=== PATIENT | female | born 2000 | race Hispanic/Latino ===

== ENCOUNTER 2025-01-13 20:25 | Emergency (ER) | payer BC ==
[~2025-01-13] VITALS: Ht 170.2 cm; Wt 104.3 kg
--- NOTE | 2025-01-13 20:45 | ERN ---
ED Note History of Present Illness Stated Complaint: AMS Chief Complaint: Altered Mental Status Time Seen by MD: 20:40 Dictation: PATIENT IS A 24-YEAR-OLD FEMALE COMING IN FROM [facility] WITH COMPLAINTS OF ALTERED MENTAL STATUS PER THE REPORT GOTTEN FROM THE [facility], PATIENT HAD TO BE AROUSED WITH A STERNAL RUB THIS AFTERNOON AND THIS MORNING SHE HAS TO BE AROUSED WITH A AMMONIA PIN. THEY ALSO STATES SHE HAD A FALL AND HIT HER HEAD THIS MORNING HOWEVER NO LOC NO NAUSEA VOMITING. PATIENT IS CURRENTLY ALERT WITH HER EYES OPEN IN HIS ANSWERING QUESTIONS APPROPRIATELY STATES SHE HAS NO HEADACHE NO COMPLAINTS OF PAIN ANYWHERE. SHE IS NOTED TO HAVE A VERY FLAT AFFECT. NO SIGN OF SCALP INJURY, NO NECK PAIN Allergies: Coded Allergies: No Known Drug Allergies (Unverified Allergy, Unknown, 01/14/25) Past Medical History Past Medical History: Schizophrenia Surgical History: None History: Not Applicable RN Note Reviewed/Agreed w/PFSH: Yes Review of System Dictation CONSTITUTIONAL: NEGATIVE EXCEPT FOR HPI HEAD/FACE: NEGATIVE EXCEPT FOR HPI EENT: NEGATIVE EXCEPT FOR HPI RESPIRATORY: NEGATIVE EXCEPT FOR HPI GASTROINTESTINAL/ABDOMINAL: NEGATIVE EXCEPT FOR HPI GENITOURINARY: NEGATIVE EXCEPT FOR HPI MUSCULOSKELETAL: NEGATIVE EXCEPT FOR HPI INTEGUMENTARY: NEGATIVE EXCEPT FOR HPI NEUROLOGICAL/PSYCH: NEGATIVE EXCEPT FOR HPI ALTERED MENTAL STATUS HEMATOLOGIC/LYMPHATIC: NEGATIVE EXCEPT FOR HPI ALL SYSTEMS NEGATIVE, EXCEPT NOTED ABOVE. 13 POINT REVIEW OF SYSTEMS ASSESSED AND ALL NEGATIVE EXCEPT FOR ABOVE. Initial Vital Sign VS Vital Signs Date Time Temp Pulse Resp B/P (MAP) Pulse Ox O2 Delivery O2 Flow Rate FiO2 01/13/25 20:27 99.5 97 20 147/88 100 Room Air* 0 21 Physical Exam Dictation VITAL SIGNS REVIEWED GENERAL APPEARANCE: ALERT, ORIENTED X 3, NO ACUTE DISTRESS, WELL DEVELOPED, NOURISHED. OBESE DECONDITIONED HEAD AND FACE: NON-TRAUMATIC. EYES: PERRL, PINK CONJUNCTIVAS, EYELID NO TRAUMA, ANTERIOR CHAMBER WITH ARCUS SENILIS. EARS: PINNAS INTACT AND NO SIGNS OF TRAUMA OR ERYTHEMA EAR CANALS CLEAR AND NO DISCHARGE TM NO ERYTHEMA NOSE: NO DISCHARGE, NO BLEEDING. OROPHARYNX: MOUTH NORMAL, TONGUE PINK, PHARYNX CLEAR,NO ERYTHEMA, TONSILS NO EXUDATES, NO ABSCESSES NOTED, MUCOUS MEMBRANE MOIST NECK: SUPPLE, NON-TENDER, NO THYROMEGALY, NO MASSES, NO JVD, NO BRUITS BREAST:DEFERRED CHEST:NO TENDERNESS, NO CREPITUS, NO PARADOXICAL MOVEMENT, NO RETRACTIONS LUNGS:CLEAR, WELL-VENTILATED, SYMMETRIC, NO RALES, NO WHEEZING, NO RHONCHI, NO STRIDOR, GOOD BREATH SOUNDS BILATERALLY HEART: REGULAR RATE, REGULAR RHYTHM, NO MURMUR, NO GALLOPS VASCULAR: NO PERIPHERAL EDEMA, ABDOMEN: SOFT, POSITIVE BOWEL SOUNDS, NONDISTENDED, NO GUARDING, NONTENDER, NO REBOUND, NO MASSES NO HEPATOMEGALY, NO SPLENOMEGALY, NO FERNÁNDEZ'S SIGN, NO HERNIAS. RECTAL: DEFERRED GENITAL: DEFERRED NEUROLOGICAL: NORMAL SPEECH, MOTOR FUNCTION INTACT, SENSORY FUNCTION INTACT FLAT AFFECT AND MONO TONE, OUR ANSWERING QUESTIONS APPROPRIATELY. MUSCULOSKELETAL: NECK NONTENDER, FULL RANGE OF MOTION, BACK NONTENDER, FULL RANGE OF MOTION, EXTREMITIES: NONTENDER, FULL RANGE OF MOTION SKIN: COLOR PINK, DRY, NO TURGOR, NO RASH, NO LACERATIONS, NO ABRASIONS, NO CONTUSIONS. LYMPHATIC: DEFERRED Results (Laboratory/Radiology) Laboratory/Radiology Laboratory Tests Test 01/13/25 20:41 White Blood Count 13.6 K/uL (4.8-10.8) H Red Blood Count 5.03 MIL/uL (4.00-5.50) Hemoglobin 13.8 g/dL (12.0-16.0) Hematocrit 42.5 % (36-48) Mean Corpuscular Volume 84.5 fL (79-99) Mean Corpuscular Hemoglobin 27.4 pg (27.0-33.0) Mean Corpuscular Hemoglobin Concent 32.5 g/dL (32.0-36.0) Red Cell Distribution Width 13.3 % (11.0-15.5) Platelet Count 327 K/uL (130-400) Mean Platelet Volume 10.4 fL (7.5-10.5) Immature Granulocyte % (Auto) 0.4 % (0-1) Neutrophils (%) (Auto) 78.5 % (40.0-77.0) H Lymphocytes (%) (Auto) 14.8 % (21.0-51.0) L Monocytes (%) (Auto) 5.0 % (3.0-13.0) Eosinophils (%) (Auto) 0.7 % (0.0-8.0) Basophils (%) (Auto) 0.6 % (0.0-5.0) Neutrophils # (Auto) 10.7 K/uL (1.8-7.7) H Lymphocytes # (Auto) 2.0 K/uL (1.0-4.8) Monocytes # (Auto) 0.7 K/uL (0.1-1.0) Eosinophils # (Auto) 0.09 K/uL (0.00-0.70) Basophils # (Auto) 0.08 K/uL (0.00-0.20) Absolute Immature Granulocyte (auto 0.05 K/uL (0-1) Nucleated Red Blood Cells 0.0 % (0.0-0.19) Sodium Level 133 mmol/L (136-145) L Potassium Level 3.6 mmol/L (3.5-5.1) Chloride Level 97 mmol/L (101-111) L Carbon Dioxide Level 28 mmol/L (21-32) Blood Urea Nitrogen 11 mg/dL (7-18) Creatinine 0.9 mg/dL (0.5-1.0) Glomerular Filtration Rate Calc 92 mL/min (>90) Random Glucose 99 mg/dL (70-105) Total Calcium 8.9 mg/dL (8.5-10.1) Ammonia < 10 umol/L (11-32) L Total Creatine Kinase 462 U/L (21-232) *H Serum Test, Qualitative NEGATIVE (NEGATIVE) Salicylates Level < 2.8 mg/dL (2.8-20.0) L Acetaminophen Level < 1 mcg/mL (10-30) L Serum Alcohol < 3 mg/dL (0-10) Labs Reviewed?: Yes ED Course ED Course Orders Procedure Category Date Status Time Ct Head/Brain W/O CT 01/13/25 Resulted Contrast 20:40 Straight Cath If No CPOE 01/13/25 Transmitted Void X6hrs 20:40 Ammonia LAB 01/13/25 Complete 20:40 Drug Screen Urine LAB 01/13/25 Logged 20:40 Cbc With Differential LAB 01/13/25 Complete 20:40 Alcohol, Blood LAB 01/13/25 Complete 20:40 Salicylate LAB 01/13/25 Complete 20:40 Acetaminophen LAB 01/13/25 Complete 20:40 Testing, LAB 01/13/25 Complete Serum Hcg 20:40 Urinalysis Profile LAB 01/13/25 Logged 20:40 Creatine Kinase, Total LAB 01/13/25 Complete 20:40 Basic Metabolic Panel LAB 01/13/25 Complete 20:40 0.9%Nacl 1000ml (Ns PHA 01/13/25 Complete 1000ml) 22:00 Current Medications Medications (Trade) Dose Ordered Sig/Mikayla Route PRN Reason Start Time Stop Time Status Last Admin Dose Admin Sodium Chloride 1,000 ml @ 0 mls/hr ONCE ONCE IV 01/13/25 22:00 01/14/25 00:07 DC 01/14/25 00:33 Vital Signs Date Time Temp Pulse Resp B/P (MAP) Pulse Ox O2 Delivery O2 Flow Rate FiO2 01/13/25 20:27 99.5 88 20 147/88 99 Room Air 0 01/13/25 20:27 99.5 97 20 147/88 100 Room Air* [address] head is negative for any masses hydrocephalus or intracerebral bleeding. Moreover her labs are normal. Her tox screen is negative. She is stable to be discharged back to her facility Medical Decision Making MDM Patient has decreased mental status. At the facility she had jaw clenching and unresponsiveness suggestive of a seizure. We will do a CT scan of her head to rule out masses and intracerebral hemorrhage. In addition we will do a tox screen. DX & DISP Disposition: Discharge Departure Impression: Primary Impression: Decreased alertness Additional Impression: Seizure Condition: Stable Referrals: SELF,REFERRAL (PCP) ROMAINE WATTS NP Jan 13, 2025 20:45 BENJAMIN SCHERER MD Jan 14, 2025 01:28
[2025-01-13 20:48] LABS: BASOPHILS # (AUTO) 0.08 K/uL (0.00-0.20); BASOPHILS % (AUTO) 0.6 % (0.0-5.0); EOSINOPHILS # (AUTO) 0.09 K/uL (0.00-0.70); EOSINOPHILS % (AUTO) 0.7 % (0.0-8.0); HEMATOCRIT 42.5 % (36-48); IMMATURE GRANULOCYTE ABSOLUTE 0.05 K/uL (0-1); LYMPHOCYTES % (AUTO) 14.8 % (21.0-51.0); MEAN CORPUSCULAR HEMOGLOBIN 27.4 pg (27.0-33.0); MEAN CORPUSCULAR HGB CONC 32.5 g/dL (32.0-36.0); MEAN CORPUSCULAR VOLUME 84.5 fL (79-99); MONOCYTES # (AUTO) 0.7 K/uL (0.1-1.0); NEUTROPHILS # (AUTO) 10.7 K/uL (1.8-7.7); NEUTROPHILS % (AUTO) 78.5 % (40.0-77.0); PLATELET COUNT (AUTO) 327 K/uL (130-400); RED BLOOD CELL COUNT(AUTO) 5.03 MIL/uL (4.00-5.50); RED CELL DISTRIBUTION WIDTH 13.3 % (11.0-15.5); WHITE BLOOD COUNT (AUTO) 13.6 K/uL (4.8-10.8)
[2025-01-13 21:08] LABS: CARBON DIOXIDE 28 mmol/L (21-32); CHLORIDE 97 mmol/L (101-111); CREATININE 0.9 mg/dL (0.5-1.0); GLOMERULAR FILTR. RATE CALC 92 mL/min (>90); GLUCOSE,RANDOM 99 mg/dL (70-105); POTASSIUM 3.6 mmol/L (3.5-5.1); SODIUM SERUM 133 mmol/L (136-145); UREA NITROGEN, BLOOD 11 mg/dL (7-18)
[2025-01-13 21:18] LABS: ALCOHOL, BLOOD < 3 mg/dL (0-10); AMMONIA < 10 umol/L (11-32)
[2025-01-13 21:19] LABS: SALICYLATE < 2.8 mg/dL (2.8-20.0)
[2025-01-13 21:20] LABS: ACETAMINOPHEN < 1 mcg/mL (10-30); CREATINE KINASE, TOTAL 462 U/L (21-232)
[2025-01-14] MEDS: 0.9%NACL 1000ML 1,000 ML IV ONE (00:33)
--- NOTE | 2025-01-14 01:04 | HMCIMG ---
CT HEAD/BRAIN W/O CONTRAST HISTORY: Status post fall COMPARISON: None TECHNIQUE: Multiple sequential axial images of the head were obtained from the base of the skull through vertex. Patient was not given contrast through intravenous route. FINDINGS: The ventricles and extraventricular CSF spaces are nondilated for patient's age. There is no midline shift, mass effect or herniation. No acute intracranial bleed is seen. Visualized portion of the paranasal sinuses are grossly within normal limits. IMPRESSION: 1. No acute intracranial bleed is seen. CT was performed with one or more following dose reduction techniques: automated exposure control, adjustment of the mA and kv according to patient's size, or use of a iterative reconstruction technique.
[2025-01-14 02:52] VITALS: BP 128/85; PULSE 88; RESP 20; TEMP 98.9; O2SAT 100
== END 2025-01-14 02:57 | disposition home or self-care (01) ==
LOC: EDH 20:25
DX: R56.9 Unspecified convulsions (principal); F20.9 Schizophrenia, unspecified; R41.82 Altered mental status, unspecified
CPT/HCPCS: 99284; 70450; 82550; 80048; 84703; 82140; 85025; 36415; G0481; J7030